=== PATIENT | female | born 1980 | race Caucasian/White ===

== ENCOUNTER → 2017-12-10 15:10 | Observation (INO) ==
[2017-12-10 14:24] LABS: Bilirubin,Urine Negative (Negative); Blood,Urine Negative (Negative); Clarity,Urine Clear (Clear); Color,Urine Yellow (Yellow); Glucose,Urine (UA) 250 mg/dL (Normal); Ketones,Urine Trace mg/dL (Negative); Leukocyte Esterase,Urine Negative (Negative); Nitrite,Urine Negative (Negative); PH,Urine 6.5 pH Units (5.0-8.0); Protein,Urine 30 mg/dL (Neg-Trace); Specific Gravity,Urine 1.021 (1.010-1.025); Urobilinogen,Urine Normal (Normal)
[2017-12-10 14:25] LABS: Bacteria,Urine Few per hpf (None-Few); Hyaline Casts,Urine None Seen per lpf (None-Few); Squamous Epithelial Cell,Urine Many per lpf (None-Few)
[2017-12-10 14:36] LABS: Basophils % 0.3 %; Eosinophils % 0.4 %; Hemoglobin 10.2 g/dL (11.5-15.4); Immature Granulocytes % 1.5 % (0-4); Lymphocytes % 20.1 %; Mean Corpuscular HGB Conc 35.2 g/dL (31.6-35.5); Mean Corpuscular Volume 90.9 fL (83.0-100.0); Mean Platelet Volume 10.1 fL (9.4-12.4); Monocytes # 0.7 K/mcL (0.0-1.3); Monocytes % 6.4 %; Neutrophils # 7.3 K/mcL (1.6-8.9); Platelet Count 228 K/mcL (140-400); Red Blood Count 3.19 M/mcL (3.82-4.97); Red Cell Distribution Width 13.2 % (11.5-14.5); Segmented Neutrophils % 71.3 %
[2017-12-10 14:43] LABS: RBC,Urine 0-3 per hpf (0-3)
--- NOTE | 2017-12-10 14:45 | OB/GYN Progress Note ---
Date of Encounter: 12/10/17 Time of Encounter: 14:44 - Assessment and Plan (1) 28 weeks gestation of Current Visit: Yes Status: Acute Seek care if possible labor precautions given Discharge home (2) NST (non-stress test) reactive on surveillance Current Visit: Yes Status: Acute Category 1 tracing. See documentation for full NST evaluation. Subjective - Subjective Principal diagnosis: NST visit Interval history: Mr. heredia is 37 years old approximately 28 weeks 6 days gestation dated by ultrasound today. She has received no prior care. She presents from the emergency room for NST for reassurance. She denies contractions, leakage of fluid, vaginal bleeding. And endorses good movement. Antepartum ROS: new complaints, movement normal, no loss of fluid, no vaginal bleeding, no contractions Objective - Vital Signs Vital Signs: Intake and Output 12/09/17 12/10/17 12/10/17 23:59 07:59 15:59 Other: Weight 72.8 kg Patient Weight 12/10/17 23:59 Weight 72.8 kg - Exam FHR: category 1 FHR comments: Baseline 140 Moderate variability Accelerations present 10 x 10 Few variable decelerations FHR category I No toco activity Auscultation: bilateral: normal Abdomen: Present: normal appearance, soft, gravid Uterus: Present: normal, firm - Labs Labs: Abnormal lab results RBC 3.19 M/mcL (3.82-4.97) L 12/10/17 13:54 Hgb 10.2 g/dL (11.5-15.4) L 12/10/17 13:54 Hct 29.0 % (35.3-44.9) L 12/10/17 13:54 Urine Protein 30 mg/dL (Neg-Trace) H 12/10/17 14:07 Urine Glucose (UA) 250 mg/dL (Normal) H 12/10/17 14:07 Urine Ketones Trace mg/dL (Negative) H 12/10/17 14:07 Urine Microscopic WBC 3-5 per hpf (0-3) H 12/10/17 14:07 Ur Squamous Epith Cells Many per lpf (None-Few) H 12/10/17 14:07
[2017-12-10 15:25] LABS: HIV-1&2 Antibody & p24 Ag Nonreactive (Nonreactive); Hepatitis B Surface Antigen Nonreactive (Nonreactive)
[2017-12-10 15:59] LABS: Amphetamine Screen,Urine Negative ng/mL (Cutoff=1000); Barbiturate Screen,Urine Negative ng/mL (Cutoff=200); Benzodiazepines Screen,Urine Positive ng/mL (Cutoff=200); Cannabinoid Screen,Urine Negative ng/mL (Cutoff = 50); Cocaine Screen,Urine Negative ng/mL (Cutoff= 300); Opiate Screen,Urine Positive ng/mL (Cutoff=300); Phencyclidine Screen,Urine Negative ng/mL (Cutoff=25)
[2017-12-12 14:49] LABS: Rubella IgG Antibody POSITIVE (POSITIVE); Varicella Zoster IgG Antibody Positive
== END | disposition home or self-care (01) ==
LOC: 1NENULAB
PROVIDERS: ADMIT Advanced Practice Midwife; ATTEND Advanced Practice Midwife

== ENCOUNTER → 2017-12-24 15:17 | Observation (INO) | END | disposition left against medical advice (07) | LOC: 1NENULAB | PROVIDERS: ADMIT Registered Nurse; ATTEND Registered Nurse ==

== ENCOUNTER → 2018-02-13 20:40 | Observation (INO) ==
[2018-02-13 17:47] LABS: Basophils % 0.3 %; Eosinophils % 0.3 %; Hematocrit 33.3 % (35.3-44.9); Hemoglobin 11.1 g/dL (11.5-15.4); Immature Granulocytes % 1.2 % (0-4); Lymphocytes # 1.8 K/mcL (0.6-4.6); Lymphocytes % 18.1 %; Mean Corpuscular HGB Conc 33.3 g/dL (31.6-35.5); Mean Corpuscular Hemoglobin 30.1 pg (28.0-33.3); Mean Corpuscular Volume 90.2 fL (83.0-100.0); Mean Platelet Volume 10.7 fL (9.4-12.4); Monocytes # 0.6 K/mcL (0.0-1.3); Monocytes % 6.3 %; Neutrophils # 7.2 K/mcL (1.6-8.9); Platelet Count 202 K/mcL (140-400); Red Blood Count 3.69 M/mcL (3.82-4.97); Red Cell Distribution Width 13.6 % (11.5-14.5); Segmented Neutrophils % 73.8 %
[2018-02-13 17:57] LABS: Amphetamine Screen,Urine Negative ng/mL (Cutoff=1000); Barbiturate Screen,Urine Negative ng/mL (Cutoff=200); Benzodiazepines Screen,Urine Negative ng/mL (Cutoff=200); Cannabinoid Screen,Urine Positive ng/mL (Cutoff = 50); Cocaine Screen,Urine Negative ng/mL (Cutoff= 300); Opiate Screen,Urine Positive ng/mL (Cutoff=300); Phencyclidine Screen,Urine Negative ng/mL (Cutoff=25)
--- NOTE | 2018-02-13 18:34 | OB/GYN Progress Note ---
Date of Encounter: 02/13/18 Time of Encounter: 18:19 - Assessment and Plan (1) 38 weeks gestation of Current Visit: Yes Status: Acute Seek out PNC with any provider who will accept you Labor precautions given Discharge home (2) Uterine contractions during Current Visit: Yes Status: Acute No cervical change after 2 hours Contractions resolved with IV hydration (3) NST (non-stress test) reactive on surveillance Current Visit: Yes Status: Acute Subjective - Subjective Principal diagnosis: Dehydration in Interval history: Ms. Fernandez is a 37-year-old at presumably 38 and 1 weeks gestation who presents with complaints of contractions every 2-4 minutes that began when she got to the ambulance. She states she called the ambulance today because she had not felt the baby move "in a while" and she began millie when she got in the ambulance. She has not received care this because she has no car. She has also used heroin, marijuana, and benzodiazepines off and on throughout this . She last used heroin 3 days ago. She denies lof, vb. Antepartum ROS: contractions, no loss of fluid, no vaginal bleeding, no movement normal Objective - Exam FHR: category 1 FHR comments: Baseline 135 Moderate variability Accelerations present 15x15 No decelerations FHR Category I Contractions every 2-4 minutes initially and then stopped with fluid bolus. Auscultation: bilateral: normal Abdomen: Present: normal appearance, soft, gravid Uterus: Present: normal, firm Cervical dilation: 1-2 Cervix effacement: 70 station: -2 - Labs Labs: Abnormal lab results RBC 3.69 M/mcL (3.82-4.97) L 02/13/18 16:45 Hgb 11.1 g/dL (11.5-15.4) L 02/13/18 16:45 Hct 33.3 % (35.3-44.9) L 02/13/18 16:45 Urine Opiates Screen Positive ng/mL (Tqhhga=520) H 02/13/18 16:45 U Marijuana (THC) Screen Positive ng/mL (Cutoff = 50) H 02/13/18 16:45
[~2018-02-13 20:40] MED LIST: Ringers Solution, Lactated 1,000 ML IVC ONE
== END | disposition home or self-care (01) ==
LOC: 1NENULAB
PROVIDERS: ADMIT Student in an Organized Health Care Education/Training Program; ATTEND Student in an Organized Health Care Education/Training Program

== ENCOUNTER 2018-02-23 23:32 | Inpatient (IN) ==
[2018-02-23 20:21] LABS: Bilirubin,Urine Small (Negative); Blood,Urine Small (Negative); Clarity,Urine Turbid (Clear); Color,Urine Orange (Yellow); Glucose,Urine (UA) Normal (Normal); Ketones,Urine 15 mg/dL (Negative); Leukocyte Esterase,Urine Large (Negative); Nitrite,Urine Positive (Negative); Protein,Urine 100 mg/dL (Neg-Trace); Specific Gravity,Urine > 1.030 (1.010-1.025); Urobilinogen,Urine Normal (Normal)
[2018-02-23 20:24] LABS: Bacteria,Urine Many per hpf (None-Few); Squamous Epithelial Cell,Urine Many per lpf (None-Few); WBC,Urine TNTC per hpf (0-3)
[2018-02-23 20:43] LABS: Mucus,Urine Moderate (Few); RBC,Urine 0-3 per hpf (0-3)
[2018-02-23 20:48] LABS: Amphetamine Screen,Urine Positive ng/mL (Cutoff=1000); Barbiturate Screen,Urine Negative ng/mL (Cutoff=200); Benzodiazepines Screen,Urine Positive ng/mL (Cutoff=200); Cannabinoid Screen,Urine Positive ng/mL (Cutoff = 50); Cocaine Screen,Urine Negative ng/mL (Cutoff= 300); Opiate Screen,Urine Positive ng/mL (Cutoff=300); Phencyclidine Screen,Urine Negative ng/mL (Cutoff=25)
[2018-02-23 21:46] LABS: Basophils % 0.3 %; Eosinophils % 0.3 %; Hematocrit 34.5 % (35.3-44.9); Hemoglobin 11.8 g/dL (11.5-15.4); Immature Granulocytes % 1.8 % (0-4); Lymphocytes # 2.5 K/mcL (0.6-4.6); Lymphocytes % 17.7 %; Mean Corpuscular HGB Conc 34.2 g/dL (31.6-35.5); Mean Corpuscular Hemoglobin 31.2 pg (28.0-33.3); Mean Corpuscular Volume 91.3 fL (83.0-100.0); Mean Platelet Volume 10.6 fL (9.4-12.4); Monocytes # 0.9 K/mcL (0.0-1.3); Neutrophils # 10.5 K/mcL (1.6-8.9); Platelet Count 256 K/mcL (140-400); Red Blood Count 3.78 M/mcL (3.82-4.97); Red Cell Distribution Width 14.4 % (11.5-14.5); Segmented Neutrophils % 73.9 %
[2018-02-23 22:05] LABS: Alanine Aminotransferase 7 Units/L (7-52); Aspartate Amino Transferase 12 Units/L (13-39); BUN/Creatinine Ratio 8 (6-26); Blood Urea Nitrogen 6 mg/dL (6-20); Lactate Dehydrogenase 146 Units/L (140-271); Uric Acid 5.4 mg/dL (2.3-7.6); eGFR For Non-African Americans > 60 (> 60)
--- NOTE | 2018-02-23 23:26 | OB/GYN History & Physical ---
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 Fernandez is a 37 year old female with EDC of 02/26/18 by a 28w6d ultrasound on 12/10/17. Patient has not received any care during this . Patient presents to labor and delivery via squad for contractions. Patient reports +FM. Patient denies LOF or VB. Patient UDS positive for multiple drugs. Patient reports last use of Methamphetamines with Xanax 3-4 days ago, Heroin 1 1/2 weeks age and Marijuana 3-4 days ago. Patient was discussed with Dr. Brooke and due to hostile uterine environment due to drug use and no care decision was made to admit patient for delivery. 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, hep C - Social History Smoking Status: Current every day smoker Packs per day: 1/2 PPD Smokeless Tobacco Status: No Alcohol use: none Drug use: opiates, marijuana, methamphetamine Current living situation: Home - Independent Activity Level: Independent ambulation - Family History Father Living Status: Still Living Hx Family Cardiac Disorders: Yes (high blood pressure) Hx Family Respiratory Disorders: No Hx Family Cancer: No Hx Family GI Disorders: No Hx Family Endocrine Disorder: No Hx Family Neuromuscular Disorders: No Hx Family Neurologic Disorders: No Hx Family HEENT Disorders: No Hx Family Autoimmune Disorders: No Obstetrical History - Pregnancies : 2 Para: 1 Term: 1 : 1 Ab's: 0 Livin - History/Complications History/Complications: Vaginal delivery in 1998 Medications and Allergies Pnv62/FA/Om3/Dha/Epa/Fish Oil [[facility] Gummy Vitamins] 1 each PO DAILY 03/24 [History] 3 Allergy/AdvReac Type Severity Reaction Status Date / Time No Known Allergies Allergy Verified 02/20/17 16:56 Review of System OB - Constitutional Constitutional ROS IM: no chills, no fever(s) - Cardiovascular Cardiovascular: no chest pain, no lightheadedness, no palpitations, no syncope - Respiratory Respiratory: no cough - Gastrointestinal Gastrointestinal: no abdominal pain, no diarrhea, no heartburn, no nausea, no vomiting - Genitourinary Genitourinary: no abnormal vaginal bleeding, no difficulty urinating, no dysuria , no flank pain, no urinary urgency, no vaginal discharge, no vaginal odor, no vaginal pruritis Exam - Constitutional Constitutional: well developed, well nourished, no acute distress - HEENT HEENT: Normocephaly, Mucus Membranes Moist - Neck Neck exam: full ROM, normal inspection, supple - Lungs Respiratory exam: CTAB - Cardiovascular Cardiovascular exam: RRR, +S1, +S2 - Abdomen Abdomen: Present: bowel sounds normal, gravid, non tender - Extremities Extremities exam: full ROM, normal inspection Deep Tendon Reflex Grade: 2+ Normal - Cervix Dilation: 2 (per RN) Effacement: 80 Station: -2 - Uterus Uterus exam: Present: normal size, normal contour - Comments Comments: FHR 135 bpm moderate variability +15x15 accels no decels noted. Irregular contractions. Cat 1 tracing. Results Result Diagrams: 02/23/18 21:15 02/23/18 21:15 Abnormal lab results WBC 14.2 K/mcL (4.3-11.1) H 02/23/18 21:15 RBC 3.78 M/mcL (3.82-4.97) L 02/23/18 21:15 Hct 34.5 % (35.3-44.9) L 02/23/18 21:15 Neutrophils # 10.5 K/mcL (1.6-8.9) H 18 21:15 AST 12 Units/L (13-39) L 02/23/18 21:15 Ur Specimen Adequacy See below A 02/23/18 20:00 Urine Color [place] (Yellow) A 02/23/18 20:00 Urine Clarity Turbid (Clear) A 02/23/18 20:00 Ur Specific [place] > 1.030 (1.010-1.025) H 02/23/18 20:00 Urine Protein 100 mg/dL (Neg-Trace) H 02/23/18 20:00 Urine Ketones 15 mg/dL (Negative) H 02/23/18 20:00 Urine Blood Small (Negative) H 02/23/18 20:00 Urine Nitrite Positive (Negative) A 02/23/18 20:00 Urine Bilirubin Small (Negative) H 02/23/18 20:00 Ur Leukocyte Esterase Large (Negative) H 02/23/18 20:00 Urine Microscopic WBC TNTC per hpf (0-3) H 02/23/18 20:00 Ur Squamous Epith Cells Many per lpf (None-Few) H 02/23/18 20:00 Urine Bacteria Many per hpf (None-Few) H 02/23/18 20:00 Urine Mucus Moderate (Few) H 02/23/18 20:00 Ur Culture Indicated? NO. (NO) A 02/23/18 20:00 Urine Opiates Screen Positive ng/mL (Imyooq=264) H 02/23/18 20:00 Ur Amphetamines Screen Positive ng/mL (Disvok=1989) H 02/23/18 20:00 U Benzodiazepines Scrn Positive ng/mL (Ouoilz=290) H 02/23/18 20:00 U Marijuana (THC) Screen Positive ng/mL (Cutoff = 50) H 02/23/18 20:00 All other labs normal. - VTE Reasons for not Prescribing Prophylaxis: Treatment not Indicated - Low risk for VTE
[~2018-02-23 23:32] MED LIST changes: +Famotidine 20 MG/2 ML VIAL IVP PRN; +Naloxone 0.4 MG/ML INJ IVP PRN; +Ondansetron 4 MG/2 ML VIAL IVP PRN; -Ringers Solution, Lactated 1,000 ML IVC ONE; +Ringers Solution, Lactated 1,000 ML IVC SCH; +Ringers Solution, Lactated 1,000 ML ONE; +cefTRIAXone 2,000 MG in Water for inj. (sterile) 20 ML 20 ML IVP ONE
[2018-02-23] MEDS ORDERED: Penicillin G Potassium 5,000,000 UNIT in 0.9 % Sodium Chloride Mini Bag 100 ML IVPB ONE (23:34)
[2018-02-23] MEDS ORDERED: Ringers Solution, Lactated 1,000 ML IVC SCH (23:45)
[2018-02-24] MEDS ORDERED: Penicillin G Potassium 2,500,000 UNIT in D5% in Water 100 ML IVPB SCH
[2018-02-24] MEDS ORDERED: Oxytocin 20 units/ LR 1000 mL 20 UNIT/1,000 ML BAG IVC SCH ×2 (00:45→12:04)
--- NOTE | 2018-02-24 01:27 | Anesthesia Evaluation PreOp ---
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 History: Other (anxiety) Other Medical History: Hepatic (chronic hepatitis C) Anesthesia History: No Prior Anesthetic Complications (previous HU x 1--no complications; denies personal and family h/o GA complications) : Yes Alcohol Use: none Drug use: opiates, marijuana, methamphetamine Medications and Allergies Pnv62/FA/Om3/Dha/Epa/Fish Oil [[facility] Gummy Vitamins] 1 each PO DAILY 03/24 [History] 3 Allergy/AdvReac Type Severity Reaction Status Date / Time No Known Allergies Allergy Verified 02/24/18 00:03 - Meds/Allergy Pre-op Review Medications Reviewed: Yes Allergies Reviewed: Yes Beta Blockers on Current Med List: No Anesthesia Results - Labs 02/23/18 21:15 02/23/18 21:15 Anesthesia Exam 113/74, HR 81, RR 18 NPO (# of Hours): solids > 8hrs Pain Scale: 0 Pain Scale Used: Numeric (1 - 10) - HEENT Pupil (Motor): Pupils equal Mallampati: II Teeth: Missing (central incisor upper jaw), Poor dentition Oral Opening: Greater than 3 - WASHING MACHINE LOADER LOC: Oriented WASHING MACHINE LOADER Motor: Normal RUE, Normal LUE, Normal RLE, Normal LLE, Normal Face WASHING MACHINE LOADER Sensory: Normal: RUE, LUE, RLE, LLE, Face - Cardiac Rhythm: Regular Murmur: None - Pulmonary Breath Sounds: bilateral Clear Respiratory Effort: Symmetrical Anesthesia Assess/Plan ASA Score: 2 Modified Jim Scale for Level of Consciousness: Anixous, agitated or restless Anesthetic Plan: Regional Autologous Blood: No Monitoring Plan: Standard Monitors Recovery Plan: Other
[2018-02-24] MEDS ORDERED: Bupivacaine-MPF 0.25% 10 ML VIAL EP ONE (01:28)
[2018-02-24] MEDS ORDERED: *HR* FentaNYL (PF) 100 MCG/2 ML VIAL EP ONE (01:28)
[2018-02-24] MEDS ORDERED: Epidural Premix (fent/bupiv) 110 ML EP SCH (01:30)
[2018-02-24] MEDS ORDERED: Bupivacaine-MPF 0.25% 10 ML VIAL ONE (01:33)
[2018-02-24] MEDS ORDERED: *HR* FentaNYL (PF) 100 MCG/2 ML VIAL ONE (01:33)
[2018-02-24] MEDS ORDERED: Lidocaine -MPF 1% 5 ML AMPUL ONE (01:39)
--- NOTE | 2018-02-24 02:41 | Anesthesia Procedures ---
Date of Encounter: 02/24/18 Time of Encounter: 02:15 Procedures: Anesthesia - Epidural/Spinal Patient ID/Chart reviewed: Yes Patient examined: Yes OB Eval: Gestational age: unknown OB Eval: : 2 OB Eval: Hx Para: 1 OB Eval: Dilated at (cm): 3 OB Eval: Contractions: Non-stressed pattern Consent Obtained: Yes Supplemental Oxygen: None/Room Air Site Prep: Aseptic Technique, Sterile prep and drape, Povidone-Iodine 1% Patient position: upright Local Anesthetic: Lidocaine 1% Amount of Local Anesthetic used: 3 Touhy Needle Gauge: 18 Touhy Needle Depth (cm): 5 Catheter Depth at Skin (cm): 10 Test Dose (1.5% Lido + Epi): Volume given (mls): 5 Test Dose Result: Negative Loading Dose: 0.25% Marcaine (mls): 5 Loading Dose: Fentanyl (mcg): 100 Loading Dose Administered: Thru Catheter Infusion Med: 0.125% Bupivacaine w/ 2 mcg/ml Fentanyl Infusion Rate (mls/hr): 14 (w/ demand bolus of 5mL q30min PRN) Catheter Secured in Place: Tegaderm, Tape Interspace Used: L3-L4 Loss of Resistance (NEDRA): Yes Blood: No CSF: No Paresthesia: No Procedure: successful on 1st attempt; patient tolerated procedure well, VSS Vitals + FHT's: see Ramona RN's electronic records for VS entry
[2018-02-24] MEDS: Penicillin G Potassium 2,500,000 UNIT in 0.9 % Sodium Chloride 100 ML IVPB SCH ×2 (04:26→08:30)
--- NOTE | 2018-02-24 09:34 | OB/GYN Procedure Note ---
Delivery - Delivery Date: 02/24/18 Provider: Trupti Malone Intrapartum events: none Delivery induction: none Delivery monitor: external FHT, external uterine Anesthesia: epidural Quantitated Blood Loss: 350 - Infant (s) Infant A Delivery Date: 02/24/18 Infant Delivery Time: 09:06 Presentation: vertex Position: ROP Route of delivery: Gender: Female Viability: Viable Pounds: 7 Ounces: 14 Weight Gram: 3.59 kg at 1 minute: 8 at 5 mins: 9 Shoulder Dystocia: not encountered Specimens collected: cord blood Placenta: spontaneous Cord: 3 umbilical vessels - Repair Episiotomy: none - Complications Delivery complications: none Delivery comments: Patient progressed to complete and began coached pushing to of viable, vigorous female in the ROP position over intact perineum. placed on maternal abdomen; warmed, dried, and stimulated. Cord double clamped and cut with the assistance of the MOB after pulsations ceased. Apgars were 8 and 9 at one and five minutes of age respectively. Placenta delivered spontaneously and appears grossly intact with 3 vessel cord. Perineum intact. Infant and mother stable in recovery for [address] Singh notified. EBL 350mL. Uterus at U/3 and firm with scant bleeding after placenta delivery and uterine massage. - Disposition Mom disposition: stable in LDR disposition: stable in LDR
[2018-02-24] MEDS ORDERED: Oxytocin 20 units/ LR 1000 mL 20 UNIT/1,000 ML BAG IVC ONE (12:04)
[2018-02-24] MEDS ORDERED: Acetaminophen 325 MG TABLET PO PRN (12:04)
[2018-02-24] MEDS ORDERED: Sennosides 8.6 MG TABLET PO PRN (12:04)
[2018-02-24] MEDS ORDERED: Measles/Mumps/Rubella Vacc 0.5 ML VIAL SQ PRN (12:04)
[2018-02-24] MEDS: cephALEXin 500 MG CAPSULE PO SCH ×2 (15:07→20:04)
[2018-02-24] MEDS: Ibuprofen 600 MG TABLET PO PRN (20:04)
[2018-02-24] MEDS ORDERED: miSOPROStol 25 MCG TABLET PO ONE (23:45)
[2018-02-25 05:48] LABS: Basophils % 0.2 %; Eosinophils # 0.1 K/mcL (0.0-0.6); Eosinophils % 0.5 %; Hematocrit 29.2 % (35.3-44.9); Immature Granulocytes % 1.2 % (0-4); Lymphocytes # 2.9 K/mcL (0.6-4.6); Mean Corpuscular HGB Conc 34.2 g/dL (31.6-35.5); Mean Corpuscular Hemoglobin 31.3 pg (28.0-33.3); Mean Corpuscular Volume 91.5 fL (83.0-100.0); Mean Platelet Volume 10.7 fL (9.4-12.4); Monocytes # 1.1 K/mcL (0.0-1.3); Monocytes % 7.3 %; Platelet Count 199 K/mcL (140-400); Red Blood Count 3.19 M/mcL (3.82-4.97); Segmented Neutrophils % 71.8 %
[2018-02-25] MEDS: Prenatal Vit/FA 1 EACH TABLET PO SCH (10:01)
[2018-02-25] MEDS: Ibuprofen 600 MG TABLET PO PRN (10:01)
[2018-02-25] MEDS: cephALEXin 500 MG CAPSULE PO SCH ×3 (10:02→19:55)
--- NOTE | 2018-02-25 19:24 | OB/GYN Progress Note ---
Date of Encounter: 02/25/18 Time of Encounter: 19:21 - Assessment and Plan (1) Vaginal delivery Current Visit: Yes Status: Acute Stable PPD #1 Continue current management plan Social service consult Anticipate D/C tomorrow. Subjective - Subjective Interval history: Pt states feels well, pain well managed on po pain medication, bleeding decreasing, Patient reports: appetite normal, voiding normally, pain well controlled, ambulating normally : doing well Objective - Latest Vital Signs Latest vital signs: Vital Signs Temp Pulse Resp BP Pulse Ox 02/25/18 10:09 16 02/25/18 09:19 98.3 F 73 16 118/74 98 02/25/18 02:45 98 F 82 14 117/69 98 02/24/18 20:00 98.4 F 93 16 120/75 96 Intake and Output 02/25/18 02/25/18 02/25/18 07:59 15:59 23:59 Intake Total 240 / 240 Output Total 300 / 300 950 / 950 Balance 240 / 240 -300 / -300 -950 / -950 Intake: Oral 240 / 240 Output: Urine 300 / 300 950 / 950 Other: # Voids 2 Weight 75 kg Patient Weight 02/25/18 23:59 Weight 75 kg - Exam Lungs: bilateral: normal Chest: Normal S1, Normal S2 Extremities: Present: normal Abdomen: Present: soft Uterus: Present: firm Uterus Position: At Umbilicus - Labs Labs: Laboratory Results - last 24 hr 02/25/18 05:20 WBC 15.3 H RBC 3.19 L Hgb 10.0 L D Hct 29.2 L MCV 91.5 MCH 31.3 MCHC 34.2 RDW 14.0 Plt Count 199 MPV 10.7 Immature Gran % 1.2 Seg Neutrophils % 71.8 Lymphocytes % 19.0 Monocytes % 7.3 Eosinophils % 0.5 Basophils % 0.2 Neutrophils # 11.0 H Lymphocytes # 2.9 Monocytes # 1.1 Eosinophils # 0.1 Basophils # 0.0
[2018-02-26] MEDS: Prenatal Vit/FA 1 EACH TABLET PO SCH (08:12)
[2018-02-26] MEDS: cephALEXin 500 MG CAPSULE PO SCH (08:12)
--- NOTE | 2018-02-26 08:57 | Discharge Summary ---
Date of Encounter: 02/26/18 Time of Encounter: 08:55 - Discharge Diagnosis (1) 39 weeks gestation of Priority: Secondary Status: Acute (2) Drug abuse during Priority: Secondary Status: Acute (3) Advanced maternal age (AMA) in Priority: Secondary Status: Acute (4) Hepatitis C Priority: Secondary Status: Acute Qualifiers: Viral hepatitis chronicity: unspecified Hepatic coma status: without hepatic coma Qualified Code(s): B19.20 - Unspecified viral hepatitis C without hepatic coma (5) No care in current Priority: Secondary Status: Acute Qualifiers: Trimester: third trimester Qualified Code(s): O09.33 - Supervision of with insufficient care, third trimester (6) Vaginal delivery Priority: Primary Status: Acute Comments: Continue routine care discharge home today follow up with CNM in 4-6 weeks - Discharge Medications Prescriptions: Ibuprofen [Motrin] 600 mg PO Q6HR PRN #30 tablet PRN Reason: Cramping Home Medications: Pnv62/FA/Om3/Dha/Epa/Fish Oil [[facility] Gummy Vitamins] 1 each PO DAILY 03/24 [History] Ibuprofen [Motrin] 600 mg PO Q6HR PRN #30 tablet 02/26/18 [Rx] Allergies/Adverse Reactions: 3 Allergy/AdvReac Type Severity Reaction Status Date / Time No Known Allergies Allergy Verified 02/24/18 00:03 Data Procedures and tests throughout hospitalization: Laboratory Tests 02/23/18 02/23/18 02/23/18 20:00 20:00 21:15 WBC 14.2 H RBC 3.78 L Hgb 11.8 Hct 34.5 L MCV 91.3 MCH 31.2 MCHC 34.2 RDW 14.4 Plt Count 256 MPV 10.6 Immature Gran % 1.8 Seg Neutrophils % 73.9 Lymphocytes % 17.7 Monocytes % 6.0 Eosinophils % 0.3 Basophils % 0.3 Neutrophils # 10.5 H Lymphocytes # 2.5 Monocytes # 0.9 Eosinophils # 0.0 Basophils # 0.0 BUN Creatinine Est GFR ( Amer) Est GFR (Non-Af Amer) BUN/Creatinine Ratio Uric Acid AST ALT Lactate Dehydrogenase Ur Specimen Adequacy See below A Urine Color [place] A Urine Clarity Turbid A Urine pH 6.0 Ur Specific [place] > 1.030 H Urine Protein 100 H Urine Glucose (UA) Normal Urine Ketones 15 H Urine Blood Small H Urine Nitrite Positive A Urine Bilirubin Small H Urine Urobilinogen Normal Ur Leukocyte Esterase Large H Urine Microscopic RBC 0-3 Urine Microscopic WBC TNTC H Ur Squamous Epith Cells Many H Urine Bacteria Many H Urine Mucus Moderate H Ur Culture Indicated? NO. A Urine Opiates Screen Positive H Ur Barbiturates Screen Negative Ur Phencyclidine Scrn Negative Ur Amphetamines Screen Positive H U Benzodiazepines Scrn Positive H Urine Cocaine Screen Negative U Marijuana (THC) Screen Positive H Ur Drug Screen Interp See Below 02/23/18 02/25/18 21:15 05:20 WBC 15.3 H RBC 3.19 L Hgb 10.0 L D Hct 29.2 L MCV 91.5 MCH 31.3 MCHC 34.2 RDW 14.0 Plt Count 199 MPV 10.7 Immature Gran % 1.2 Seg Neutrophils % 71.8 Lymphocytes % 19.0 Monocytes % 7.3 Eosinophils % 0.5 Basophils % 0.2 Neutrophils # 11.0 H Lymphocytes # 2.9 Monocytes # 1.1 Eosinophils # 0.1 Basophils # 0.0 BUN 6 Creatinine 0.72 Est GFR ( Amer) > 60 Est GFR (Non-Af Amer) > 60 BUN/Creatinine Ratio 8 Uric Acid 5.4 AST 12 L ALT 7 Lactate Dehydrogenase 146 Ur Specimen Adequacy Urine Color Urine Clarity Urine pH Ur Specific [place] Urine Protein Urine Glucose (UA) Urine Ketones Urine Blood Urine Nitrite Urine Bilirubin Urine Urobilinogen Ur Leukocyte Esterase Urine Microscopic RBC Urine Microscopic WBC Ur Squamous Epith Cells Urine Bacteria Urine Mucus Ur Culture Indicated? Urine Opiates Screen Ur Barbiturates Screen Ur Phencyclidine Scrn Ur Amphetamines Screen U Benzodiazepines Scrn Urine Cocaine Screen U Marijuana (THC) Screen Ur Drug Screen Interp Date of admission: 02/23/18 23:32 Primary care physician: PCP NONE Consults: 02/24/18 12:04 Consult to Fuel Cell Builder [CONS] Routine Comment: Vaginal delivery, consult needed Consult to Database Marketing Manager [CONS] Routine Reason for SW Consult: Poly drug abuse with admission to use within the past few days. Discharging clinician: Sarika Beatty Anticipated date of discharge: 02/26/18 - Patient Status Disposition: Home, Self-Care Condition: Good Functional capacity at discharge: independent ambulation - Discharge Instructions Follow Up With: NONE,PCP [Primary Care Provider] - Trupti Malone CNM [Advanced Practice Nurse] - Additional Instructions: Perineal Care: Always wipe front to back Change your pad frequently Use your amalia bottle with warm water and spray front to back Do not douche, use tampons, have sexual intercourse or put anything in your vagina for 4-6 weeks after delivery Bleeding: Vaginal bleeding can last up to 6 weeks Your menstrual period may return as early as 6 weeks after you are discharged from the hospital Kael/Stitches Care: Vaginal Delivery Vaginal stitches will dissolve within 4-6 weeks Follow perineal care instructions Care Stitches will dissolve on their own If you have kael, they will need to be removed in the doctors office within 5-7 days. You may shower with stitches or kael Drip plan or soapy water over the incision to clean. Pat dry gently with a clean towel. Make sure you completely dry under the skin folds DO NOT USE powders, lotions, rubbing alcohol or hydrogen peroxide on or around your incision. This will slow your wound healing It is normal to have soreness, burning, tingling, itchiness and/or numbness as your incision heals Activity: Rest frequently Do not lift anything heavier than a gallon of milk, up to 10-15 pounds No driving for 1-2 weeks for Vaginal delivery No driving for 2-4 weeks for delivery Take stairs slowly, one at a time Gradually increase your daily activity until you are back to your normal routine Do not exercise until you have had your follow-up appointment Bathing: Take a shower daily Do not take a tub bath for the first 4 weeks Diet: Drink plenty of water and fruit juices Eat a well-balanced diet with foods high in fiber such as fruits and vegetables Depression: Your hormones have a major impact on your feelings and emotions. Hormone imbalance may cause changes in your mood, creating unfamiliar thoughts and actions. Support is available to help you understand and cope with these feelings and mood changes. If you answer yes to any of the following questions, please call your health care provider: Are you having trouble sleeping? Are you feeling isolated? Have you lost your appetite? Are you having thoughts of hurting yourself or others? WARNING SIGNS: Heavy bleeding from the vagina (blood is bright red and soaks a sanitary pad in an hour or less.) Passing a blood clot larger than your fist Discharge from the vagina that has a bad odor Temperature over 100.4 F, or if you feel cold and have chills An episiotomy site that is warm, swollen or oozing. Use a mirror if needed Urination (pee) that is painful, very red and swollen or leaking fluid An incision that is painful, very red and swollen and leaking fluid An incision that has come open Breasts that are painful or full with flu like symptoms Redness, warmth or swelling in the calf of your leg Trouble breathing, dizziness, visual disturbance or faintness *Notify your health care provider immediately or go to the nearest Emergency Room if you experience any of the above signs.* To contact the nurses station 24 hours a day, For non-urgent, routine questions, please call the office at - Diet and Activity Activity: increase activity as tolerated Diet: regular diet Hospital Course Reason for admission: active labor Delivery: Episiotomy: none Other procedures: none complications: none Discharge diagnosis: IUP at term delivered [place] baby: female (bottle feeding) Time Attestation: Total time spent providing and/or coordinating discharge services: Time Spent: Less than 30 minutes Exam - Constitutional Vitals: Temp Pulse Resp BP Pulse Ox 97.8 F 69 16 128/75 99 02/25/18 19:45 02/25/18 19:45 02/25/18 19:45 02/25/18 19:45 02/25/18 19:45 General appearance IM: A&O X 3, pleasant, answers questions appropriately - Respiratory Respiratory exam: Present: CTAB - Cardiovascular Cardiovascular exam IM: Present: +S2 - GI/Abdominal GI/Abdominal exam IM: normal bowel sounds - External exam: normal external exam Uterine Tone: Firm Uterus Position: 2 Fingers Below Umbilicus, Midline - Extremities Exam Extremities exam IM: Present: full ROM - Neurological Exam Neurological exam: alert, oriented X3
[2018-02-26 10:25] VITALS: BP 134/69
== END 2018-02-26 11:39 | disposition home or self-care (01) | DRG 560 ==
LOC: 1NENULAB → 1NENUOBS 02-24 11:30
PROVIDERS: ADMIT Advanced Practice Midwife; ATTEND Advanced Practice Midwife